=== PATIENT | female | born 1950 | race Caucasian/White ===

== ENCOUNTER 2023-08-12 11:08 | Emergency (ER) | payer BC, MEDICARE ==
[2023-08-12] MEDS: fentaNYL 100 MCG/2 ML SDV IVPUSH ONE ×2 (12:06→12:57)
[2023-08-12] MEDS: Sodium Chloride 0.9% 10 ML Syringe FLUSH PRN (12:06)
[2023-08-12] MEDS ORDERED: Propofol 200 MG/20 ML SDV ONE (13:44)
[2023-08-12 14:49] VITALS: BP 139/80; PULSE 62
== END 2023-08-12 14:50 | disposition home or self-care (01) ==
LOC: JP.ED 11:08
DX: S43.014A Anterior dislocation of right humerus, initial encounter (principal); S43.034A Inferior dislocation of right humerus, initial encounter; Z79.899 Other long term (current) drug therapy; X50.1XXA Overexertion from prolonged static or awkward postures, initial encounter; Y93.89 Activity, other specified
CPT/HCPCS: 73020; 73030; 96374; 96376; 99283; J2704; J3010; J3490

== ENCOUNTER 2023-10-20 06:59 | Emergency (ER) | payer MEDICARE ==
[2023-10-20 07:20] VITALS: BP 157/98; PULSE 80
== END 2023-10-20 07:47 | disposition home or self-care (01) ==
LOC: JP.ED 06:59
DX: N81.4 Uterovaginal prolapse, unspecified (principal)
CPT/HCPCS: 99282; 99283